=== PATIENT | male | born 1965 | race Caucasian/White ===

== ENCOUNTER → 2019-04-07 | Outpatient (CLI) | payer BC ==
[~2019-04-07] MED LIST: REGADENOSON 0.4 MG/5 ML DISP.SYRIN. IV ONE
--- NOTE | 2019-04-07 10:11 | PCVCIMAG ---
EXAM: BILATERAL CAROTID DUPLEX INDICATION: Carotid Occlusive Disease. FINDINGS: Doppler Measurements (centimeters per second): RIGHT: Peak CCA-85, Peak ECA-86, Diastolic ICA-26, Peak ICA-82, ICA/CCA Ratio-1.0. LEFT: Peak CCA-98, Peak ECA-114, Diastolic ICA-35, Peak ICA-89, ICA/CCA Ratio-0.9. RIGHT CAROTID: The carotid bulb has moderate plaque. The proximal internal carotid artery shows <40% stenosis. The common carotid artery shows no significant stenosis. The external carotid artery shows no significant stenosis. LEFT CAROTID: The carotid bulb has minimal plaque. The proximal internal carotid artery shows no significant stenosis. The common carotid artery shows no significant stenosis. The external carotid artery shows no significant stenosis. Antegrade flow in both vertebral arteries. IMPRESSION: <40% stenosis of the right internal carotid artery with moderate plaque. No significant stenosis of the left internal carotid artery with minimal plaque. Incidental note is made of a 0.9 x 1.0 cm solid nodule left thyroid lobe. No prior studies for comparison. If needed dedicated thyroid ultrasound could be done. LOC:[id number]
--- NOTE | 2019-04-07 13:45 | PCVCIMAG ---
APPROVED REPORT Study performed: 04/07/2019 11:48:00 EXAM: Comprehensive 2D, Doppler, and color-flow Echocardiogram Patient Location: Echo lab Status: routine BSA: 2.26 HR: 57 bpmBP: 110/80 mmHg Rhythm: NSR Other Information Study Quality: Adequate Risk Factors: Cardiac Risk Factors: HTN, Hyperlipidemia Indications Syncope History of gastric bypass. 2D Dimensions IVSd: 15.09 (7-11mm)LVOT Diam: 26.21 (18-24mm) LVDd: 40.69 mm PWd: 11.50 (7-11mm)Ascending Ao: 35.96 (22-36mm) LVDs: 33.99 (25-40mm) Left Atrium: 52.31 (27-40mm) Aortic Root: 30.76 mm LV Single Plane 2CH: 60.89 % Volumes Left Atrial Volume (Systole) Single Plane 4CH: 86.12 mLSingle Plane 2CH: 78.29 mL LA ESV Index: 34.00 mL/m2 Aortic Valve AoV Peak Santana.: 1.39 m/s AO Peak Gr.: 7.69 mmHg Mitral Valve E/A Ratio: 1.3 MV Decel. Time: 232.03 ms MV E Max Santana.: 0.98 m/s MV A Santana.: 0.76 m/s IVRT: 93.43 ms TDI E/Lateral E': 9.80E/Medial E': 8.91 Medial E' Santana.: 0.11 m/s Lateral E' Santana.: 0.10 m/s Pulmonary Valve PV Peak Gr.: 4.46 mmHg Pulmonary Vein P Vein S: 0.59 m/sP Vein A: 0.48 m/s P Vein D: 0.45 m/sP Vein A Dur.: 103.8 msec P Vein S/D Ratio: 1.31 Tricuspid Valve TR Peak Santana.: 2.65 m/s TR Peak Gr.: 28.01 mmHg Left Ventricle The left ventricle is normal size. There is normal LV segmental wall motion. There is normal left ventricular wall thickness. Left ventricular systolic function is normal. The left ventricular ejection fraction is within the normal range. LVEF is 60-65%. Right Ventricle The right ventricle is normal size. The right ventricular systolic function is normal. Atria The left atrium size is normal. The right atrium size is normal. Aortic Valve The aortic valve is normal in structure. No aortic regurgitation is present. There is no aortic valvular stenosis. Mitral Valve The mitral valve is normal in structure. Trace mitral regurgitation. No evidence of mitral valve stenosis. Tricuspid Valve The tricuspid valve is normal in structure. Trace tricuspid regurgitation. Pulmonary artery pressure is 35mmhg. Pulmonic Valve The pulmonary valve is normal in structure. There is no pulmonic valvular regurgitation. Great Vessels The aortic root is normal in size. IVC is normal in size and collapses >50% with inspiration. Pericardium There is no pericardial effusion. <Conclusion> The left ventricle is normal size. LVEF is 60-65%. The aortic valve is normal in structure. The mitral valve is normal in structure. Trace mitral regurgitation. The tricuspid valve is normal in structure. Trace tricuspid regurgitation. Pulmonary artery pressure is 35mmhg. The pulmonary valve is normal in structure. There is no pericardial effusion.
--- NOTE | 2019-04-08 15:54 | PCVCIMAG ---
APPROVED REPORT Imaging Protocol: Rest Tc-99m/Stress Tc-99m 1 day Study performed: 04/07/2019 11:15:47 Indication: Syncope Patient Location: Out-Patient Stress Nurse: EMBER Jeffrey RN [place] Tech:Any [place] [facility] Ht: 6 ft 2 in Wt: 270 lbs BSA: 2.47 m2 HR: 57 bpm BP: 137/85 mmHg BMI: 34.66 Rhythm: Normal Sinus Rhythm, Sinus Bradycardia Medical History Medical History: HTN Medications: Amlodipine, Lisinopril, Losartan, Metoprolol, Requip Allergies: No known drug allergies Cardiac Risk Factors: Age Pretest Chest Pain Characteristics: No chest pain Exercise History: Indeterminate Physical Disabilities: Back, Knees Meds Held (24 hrs): Metoprolol Resting Data Rest SPECT myocardial perfusion imaging was performed in supine position 45 minutes following the intravenous injection of 10.7 mCi of Tc-99m Sestamibi. Time of rest injection: 1020 Date: 04/07/2019 Administration Route: IV Administration Site: Right Arm Pharmacologic Stress Pharmacologic stress test was performed by injecting Regadenoson 0.4 mg IV push over 10-15 seconds immediately followed by the intravenous injection of 34.7 mCi of Tc-99m Sestamibi. Time of stress injection: 1230 Date: 04/07/2019 Administration Route: IV Administration Site: Right Arm Gated Stress SPECT was performed 45 minutes after stress injection. The images were gated to evaluate regional wall motion and calculate left ventricular ejection fraction. Stress Test Details Stress Test: Pharmacologic stress was paired with low level exercise. Reason for pharmacologic stress test: physical limitation, back and knee issues. HRMax Heart Rate (APMHR): 168 bpm Resting HR: 57 bpmTarget HR (85% APMHR): 142 bpm Max HR Achieved: 102 bpm % of APMHR: 60 Recovery HR: 62 bpm BP Resting BP: 137/85 mmHg Max BP: 159/84 mmHg Recovery BP: 141/82 mmHg ECG Resting ECG: Normal Sinus Rhythm, Sinus Bradycardia Stress ECG: Sinus Tachycardia Arrhythmia: None Recovery ECG: Sinus Rhythm Clinical Reason for Termination: Completed protocol Stress Symptoms: Dyspnea Exercise duration: 4 min 00 sec Exercise capacity: 1.6 METs Symptoms resolved during recovery. Stress ECG Conclusion 1. Adequate response to intravenous Lexiscan 2. Inadequate heart rate for ECG diagnosis Study Data Post stress, the left ventricular ejection was 70%.. SSS: 1 SRS: 9 SDS: 0 TID = 1.09. Perfusion There is a large area of moderately reduced uptake in the entire segment of the inferior wall which is seen on the stress images as well as the resting images. This area thickens and moves normally and is most consistent with attenuation artifact. Wall Motion Normal left ventricular wall motion. Nuclear Conclusion ECG Findings: non-diagnostic Clinical Findings: negative for ischemia Nuclear Findings: negative for ischemia Exercise Capacity: not assessed Left Ventricular Function: normal 1. Low risk study 2. Post exercise left ventricular ejection fraction 70% with normal contractility <Conclusion> 1. Adequate response to intravenous Lexiscan 2. Inadequate heart rate for ECG diagnosis
== END | disposition home or self-care (01) ==
LOC: PCVCIMAG 09:30
PROVIDERS: ATTEND Internal Medicine
DX: I65.21 Occlusion and stenosis of right carotid artery (principal); E04.1 Nontoxic single thyroid nodule
CPT/HCPCS: 78452; 93017; 93306; 93880; A9500; J2785